=== PATIENT | male | born 1995 | race African-American/Black ===

== ENCOUNTER 2019-01-22 17:56 | Emergency (ER) | payer OTHER | END 2019-01-22 19:35 | disposition home or self-care (01) | LOC: JERFT 17:56 ==

== ENCOUNTER 2020-10-17 07:27 | Emergency (ER) | payer OTHER ==
[2020-10-17 07:37] VITALS: BP 140/95; PULSE 73; TEMP 98; BMI 25.8
[2020-10-17] MEDS ORDERED: ACETAMINOPHEN 500 MG TABLET (FP) PO ONE (08:01)
[2020-10-17] MEDS ORDERED: ACETAMINOPHEN 325 MG TABLET (FP) ONE (08:08)
== END 2020-10-17 08:56 | disposition home or self-care (01) ==
LOC: JER 07:27
DX: K08.89 Other specified disorders of teeth and supporting structures (principal)
CPT/HCPCS: 99283-25